=== PATIENT | male | born 1990 | race Hispanic/Latino ===

== ENCOUNTER 2022-03-28 11:17 | Emergency (ER) | payer SELFPAY ==
[~2022-03-28] VITALS: Ht 172.7 cm; Wt 67.1 kg
[2022-03-28 11:18] VITALS: BP 121/70
[2022-03-28] MEDS ORDERED: ANUS2.5C2 TOP (14:02)
[2022-03-28] MEDS ORDERED: LIDO5CRE6 TOP (14:02)
[2022-03-28] MEDS ORDERED: MIRA3350 PO (14:03)
== END 2022-03-28 14:17 | disposition home or self-care (01) ==
LOC: M ED 11:17
DX: K64.4 Residual hemorrhoidal skin tags (principal)

== ENCOUNTER 2022-04-30 05:57 | Emergency (ER) | payer SELFPAY ==
[~2022-04-30] VITALS: Ht 172.7 cm; Wt 65.9 kg
[~2022-04-30 05:57] MED LIST: ANUS2.5C2 TOP; LIDO5CRE6 TOP; MIRA3350 PO
[2022-04-30] MEDS ORDERED: KETOROLAC 60MG 2ML VIAL IM ONE (08:10)
[2022-04-30 08:58] LABS: RSV AMPLIFICATION NEGATIVE (NEGATIVE)
[2022-04-30] MEDS ORDERED: CYCL-707 PO (09:08)
[2022-04-30 09:15] VITALS: BP 123/70
== END 2022-04-30 09:20 | disposition home or self-care (01) ==
LOC: M ED 05:57
DX: M51.27 Other intervertebral disc displacement, lumbosacral region (principal)
CPT/HCPCS: 72131; 87631; 96372; 99283; J1885

== ENCOUNTER 2022-07-15 03:33 | Emergency (ER) | payer SELFPAY ==
[~2022-07-15] VITALS: Ht 172.7 cm; Wt 67.4 kg
[~2022-07-15 03:33] MED LIST changes: +CYCL-707 PO
[2022-07-15 03:34] VITALS: BP 133/73
== END 2022-07-15 04:57 | disposition left against medical advice (07) ==
LOC: M ED 03:33
DX: Z53.21 Procedure and treatment not carried out due to patient leaving prior to being seen by health care provider (principal)

== ENCOUNTER 2022-10-29 17:02 | Emergency (ER) | payer MEDICAID, OTHER, SELFPAY ==
[~2022-10-29] VITALS: Ht 170.2 cm; Wt 65.5 kg
[2022-10-29] MEDS ORDERED: MORPHINE 4 MG/ML 1ML VIAL IV PRN (17:10)
[2022-10-29] MEDS ORDERED: NS 1,000 ML IV ONE (17:10)
[2022-10-29] MEDS ORDERED: ONDANSETRON 4MG 2ML VIAL IV ONE (17:10)
[2022-10-29] MEDS ORDERED: ACET-910 PO (17:16)
[2022-10-29 17:32] LABS: BASO % 0.2 % (0.0-1.0); EOS % 0.1 % (0.0-3.0); HEMATOCRIT 41.4 % (42.0-52.0); HEMOGLOBIN 13.7 g/dl (13.5-17.5); LYMPH # 0.6 10^3/uL (1.5-5.0); LYMPH % 6.3 % (24.0-44.0); MEAN CORPUSCULAR HGB CONC 33.1 g/dl (32.0-36.5); MEAN CORPUSCULAR VOLUME 84.7 fl (80.0-96.0); MONO # 0.5 10^3/uL (0.0-0.8); MONO % 5.9 % (2.0-8.0); NEUTROPHILS # 7.6 10^3/uL (1.5-8.5); NEUTROPHILS % 86.7 % (36.0-66.0); PLATELET COUNT, AUTOMATED 158 10^3/uL (150-450); RED BLOOD COUNT 4.89 10^6/uL (4.30-6.10); WHITE BLOOD COUNT 8.8 10^3/uL (4.0-10.0)
[2022-10-29] MEDS ORDERED: ISOVUE-370 76% 100ML VIAL As Ordered ONE (17:38)
[2022-10-29 18:04] LABS: RSV AMPLIFICATION NEGATIVE (NEGATIVE)
[2022-10-29 18:26] LABS: ALBUMIN 3.7 G/DL (3.2-5.2); ALKALINE PHOSPHATASE 63 U/L (46-116); ALT/SGPT 22 U/L (7.0-40); AST/SGOT 23 U/L (<34); BILIRUBIN,DIRECT 0.2 MG/DL (<0.4); BILIRUBIN,TOTAL 0.6 MG/DL (0.3-1.2); BLOOD UREA NITROGEN 13 MG/DL (9-23); CALCIUM LEVEL 9.3 MG/DL (8.5-10.1); CARBON DIOXIDE LEVEL 25 MMOL/L (20-31); CHLORIDE LEVEL 104 MMOL/L (98-107); CREATININE FOR GFR 0.71 MG/DL (0.70-1.30); GLOMERULAR FILTRATION RATE > 60.0 (>60); GLUCOSE, FASTING 105 MG/DL (60-100); LIPASE 17 U/L (12-53); POTASSIUM SERUM 4.2 MMOL/L (3.5-5.1); SODIUM LEVEL 137 MMOL/L (136-145); TOTAL PROTEIN 8.8 G/DL (5.7-8.2)
[2022-10-29 19:00] VITALS: BP 139/70
[2022-10-29] MEDS ORDERED: ONDA4TAB6 PO (20:08)
== END 2022-10-29 20:22 | disposition home or self-care (01) ==
LOC: M ED 17:02 → EDBD 17:02 → M ED 20:22
DX: K52.9 Noninfective gastroenteritis and colitis, unspecified (principal); Z79.83 Long term (current) use of bisphosphonates; Z79.899 Other long term (current) drug therapy
CPT/HCPCS: 74177; 80047; 80048; 80076; 83690; 85025; 86850; 86900; 86901; 87631; 96374; 96375; 99284; J2270; J2405

== ENCOUNTER → 2022-11-01 | Outpatient (REF) | payer OTHER ==
[~2022-11-01] MED LIST changes: +ACET-910 PO; +ONDA4TAB6 PO
[2022-11-01 14:05] LABS: BASO % 0.6 % (0.0-1.0); EOS % 0.2 % (0.0-3.0); HEMATOCRIT 41.9 % (42.0-52.0); HEMOGLOBIN 13.6 g/dl (13.5-17.5); LYMPH # 1.3 10^3/uL (1.5-5.0); LYMPH % 25.8 % (24.0-44.0); MEAN CORPUSCULAR HEMOGLOBIN 27.8 pg (27.0-33.0); MEAN CORPUSCULAR HGB CONC 32.5 g/dl (32.0-36.5); MEAN CORPUSCULAR VOLUME 85.5 fl (80.0-96.0); MONO # 0.6 10^3/uL (0.0-0.8); MONO % 12.1 % (2.0-8.0); NEUTROPHILS % 60.5 % (36.0-66.0); PLATELET COUNT, AUTOMATED 162 10^3/uL (150-450)
[2022-11-01 14:39] LABS: HEMOGLOBIN A1c 5.2 % (4.0-6.0)
[2022-11-01 14:46] LABS: ALBUMIN 3.6 G/DL (3.2-5.2); ALKALINE PHOSPHATASE 57 U/L (46-116); ALT/SGPT 25 U/L (7.0-40); AST/SGOT 23 U/L (<34); BILIRUBIN,TOTAL 0.5 MG/DL (0.3-1.2); BLOOD UREA NITROGEN 10 MG/DL (9-23); CALCIUM LEVEL 9.7 MG/DL (8.5-10.1); CARBON DIOXIDE LEVEL 28 MMOL/L (20-31); CHLORIDE LEVEL 102 MMOL/L (98-107); CHOLESTEROL LEVEL 134 MG/DL (<200); CHOLESTEROL RISK RATIO 4.76 (<5); CREATININE FOR GFR 0.79 MG/DL (0.70-1.30); GLOMERULAR FILTRATION RATE > 60.0 (>60); GLUCOSE, FASTING 101 MG/DL (60-100); HDL CHOLESTEROL 28.1 MG/DL (>40); LDL CHOLESTEROL 84.9 MG/DL (<100); NON-HDL-C 106 MG/DL; POTASSIUM SERUM 4.1 MMOL/L (3.5-5.1); SODIUM LEVEL 136 MMOL/L (136-145); THYROID STIMULATING HORMONE 2.199 uIU/ML (0.55-4.78); TOTAL PROTEIN 8.6 G/DL (5.7-8.2); TRIGLYCERIDES LEVEL 105 MG/DL (<150)
== END ==
LOC: M LAB REF 12:52
PROVIDERS: ATTEND Nurse Practitioner Family
DX: K59.00 Constipation, unspecified (principal); E55.9 Vitamin D deficiency, unspecified; R53.83 Other fatigue; Z11.9 Encounter for screening for infectious and parasitic diseases, unspecified

== ENCOUNTER → 2022-11-08 | Outpatient (CLI) | payer OTHER ==
[2022-11-08 16:11] LABS: APPEARANCE, URINE CLEAR (CLEAR); BACTERIA, URINE AUTO NEGATIVE (NEGATIVE); BILIRUBIN, URINE AUTO NEGATIVE (NEGATIVE); BLOOD, URINE BLOOD NEGATIVE (NEGATIVE); COLOR, URINE YELLOW (YELLOW); GLUCOSE, URINE (UA) AUTO NEGATIVE (NEGATIVE); KETONE, URINE AUTO NEGATIVE (NEGATIVE); LEUKOCYTE ESTERASE, URINE AUTO NEGATIVE (NEGATIVE); MUCUS, URINE SMALL (NEGATIVE); NITRITE, URINE AUTO NEGATIVE (NEGATIVE); PROTEIN, URINE AUTO NEGATIVE (NEGATIVE); RBC, URINE AUTO 0 /HPF (0-3); SPECIFIC GRAVITY URINE AUTO 1.016 (1.002-1.035); SQUAMOUS EPITHELIAL CELL UR AU 0 /HPF (0-6); UROBILINOGEN, URINE AUTO 0.2 mg/dL (0.0-2.0); WBC, URINE AUTO 0 /HPF (0-3)
[2022-11-08 16:41] LABS: HEPATITIS B SURFACE ANTIBODY POSITIVE (POSITIVE)
[2022-11-08 16:53] LABS: HEPATITIS B SURFACE ANTIGEN NEGATIVE (NEGATIVE)
[2022-11-08 17:38] LABS: GC DNA AMPLIFICATION NEGATIVE (NEGATIVE)
[2022-11-08 20:25] LABS: GC DNA AMPLIFICATION NEGATIVE (NEGATIVE)
== END ==
LOC: M PLALAB 12:15
PROVIDERS: ATTEND Internal Medicine Infectious Disease
DX: B20 Human immunodeficiency virus [HIV] disease (principal)

== ENCOUNTER → 2022-11-28 | Outpatient (CLI) | payer OTHER ==
[2022-12-01 01:10] LABS: % CD8 Pos Lymph 77.6 % (12.0-35.5); %CD4 Pos Lymphs 8.2 % (30.8-58.5); ABS Lymphs 1.5 x10E3/uL (0.7-3.1); ABS Monocytes 0.5 x10E3/uL (0.1-0.9); Abs CD4 Helper 123 /uL (359-1519); Abs CD8 Suppres 1164 /uL (109-897); CD4/CD8 Ratio 0.11 (0.92-3.72); Eosinophils 1 % (Not Estab.); HCT 40.1 % (37.5-51.0); HGB 12.8 g/dL (13.0-17.7); HIV-1 RNA PCR QUANT 2 LC550285 150 copies/mL (.); HIV-1 RNA PCR QUANT 3 LC550285 2.176 (.); Immature Grans 0 % (Not Estab.); Lymphocytes 36 % (Not Estab.); MCH 27.4 pg (26.6-33.0); MCHC 31.9 g/dL (31.5-35.7); MCV 86 fL (79-97); Monocytes 13 % (Not Estab.); Neutrophils 49 % (Not Estab.); Platelets 157 x10E3/uL (150-450); RBC 4.67 x10E6/uL (4.14-5.80); RDW 13.3 % (11.6-15.4); WBC 4.1 x10E3/uL (3.4-10.8)
== END ==
LOC: M PLALAB 12:20
PROVIDERS: ATTEND Internal Medicine Infectious Disease
DX: B20 Human immunodeficiency virus [HIV] disease (principal)

== ENCOUNTER → 2022-11-29 | Outpatient (REF) | payer OTHER ==
[~2022-11-29] MED LIST changes: +BACTDSTA PO; +BIKT1TAB PO; +DOCU100C16 PO; +VITA200032 PO
== END ==
LOC: M SFHCDERM 14:30
PROVIDERS: ATTEND Nurse Practitioner Family
DX: D48.9 Neoplasm of uncertain behavior, unspecified (principal)

== ENCOUNTER 2022-12-15 09:52 | Day surgery (SDC) | payer OTHER ==
[~2022-12-15] VITALS: Ht 172.7 cm; Wt 63.9 kg
[~2022-12-15 09:52] MED LIST changes: +BACTDSTA; +LIDOCAINE 2% 100MG/5ML SDV (FOR ANES.) As Ordered ONE; +NS 1,000 ML IV ONE; +propofoL 200 MG/20 ML VIAL As Ordered ONE
[2022-12-15] MEDS ORDERED: propofoL 200 MG/20 ML VIAL As Ordered ONE (13:24)
[2022-12-15 15:15] VITALS: BP 123/67
== END 2022-12-15 15:15 | disposition home or self-care (01) ==
LOC: M OPP 09:52
PROVIDERS: ATTEND Internal Medicine Gastroenterology
DX: D49.0 Neoplasm of unspecified behavior of digestive system (principal); K92.1 Melena; Z53.8 Procedure and treatment not carried out for other reasons; B20 Human immunodeficiency virus [HIV] disease; K75.9 Inflammatory liver disease, unspecified; F41.9 Anxiety disorder, unspecified; Z79.899 Other long term (current) drug therapy

== ENCOUNTER → 2022-12-19 | Outpatient (REF) | payer OTHER ==
[~2022-12-19] MED LIST changes: -LIDOCAINE 2% 100MG/5ML SDV (FOR ANES.) As Ordered ONE; -NS 1,000 ML IV ONE; -propofoL 200 MG/20 ML VIAL As Ordered ONE
== END ==
LOC: M SFHCDERM 17:48
PROVIDERS: ATTEND Nurse Practitioner Family
DX: D48.5 Neoplasm of uncertain behavior of skin (principal)

== ENCOUNTER → 2023-01-16 | Outpatient (CLI) | payer OTHER ==
[~2023-01-16] MED LIST changes: +ISOVUE-370 76% 100ML VIAL As Ordered ONE
== END ==
LOC: M RAD 13:40
PROVIDERS: ATTEND Specialist
DX: C46.9 Kaposi's sarcoma, unspecified (principal); R92.2 Inconclusive mammogram
CPT/HCPCS: 70491; 71260; Q9967

== ENCOUNTER → 2023-03-09 | Outpatient (CLI) | payer OTHER ==
[~2023-03-09] MED LIST changes: -ISOVUE-370 76% 100ML VIAL As Ordered ONE
[2023-03-09 15:36] LABS: ALBUMIN 3.8 G/DL (3.2-5.2); ALKALINE PHOSPHATASE 66 U/L (46-116); ALT/SGPT 19 U/L (7.0-40); AST/SGOT < 8 U/L (<34); BILIRUBIN,TOTAL 0.5 MG/DL (0.3-1.2); BLOOD UREA NITROGEN 12 MG/DL (9-23); CALCIUM LEVEL 8.8 MG/DL (8.5-10.1); CARBON DIOXIDE LEVEL 28 MMOL/L (20-31); CHLORIDE LEVEL 104 MMOL/L (98-107); CREATININE FOR GFR 1.05 MG/DL (0.70-1.30); GLOMERULAR FILTRATION RATE > 60.0 (>60); GLUCOSE, FASTING 98 MG/DL (60-100); POTASSIUM SERUM 4.7 MMOL/L (3.5-5.1); SODIUM LEVEL 137 MMOL/L (136-145); TOTAL PROTEIN 7.7 G/DL (5.7-8.2)
[2023-03-11 04:09] LABS: % CD8 Pos Lymph 61.8 % (12.0-35.5); %CD4 Pos Lymphs 13.8 % (30.8-58.5); ABS Monocytes 0.6 x10E3/uL (0.1-0.9); ABS Neutophils 1.8 x10E3/uL (1.4-7.0); Abs CD4 Helper 138 /uL (359-1519); Abs CD8 Suppres 618 /uL (109-897); CD4/CD8 Ratio 0.22 (0.92-3.72); Eosinophils 1 % (Not Estab.); HCT 41.6 % (37.5-51.0); HGB 13.9 g/dL (13.0-17.7); HIV-1 RNA PCR QUANT 2 LC550285 30 copies/mL (.); HIV-1 RNA PCR QUANT 3 LC550285 1.477 (.); Immature Grans 0 % (Not Estab.); Lymphocytes 29 % (Not Estab.); MCH 28.8 pg (26.6-33.0); MCHC 33.4 g/dL (31.5-35.7); MCV 86 fL (79-97); Monocytes 17 % (Not Estab.); Neutrophils 52 % (Not Estab.); Platelets 195 x10E3/uL (150-450); RBC 4.82 x10E6/uL (4.14-5.80); RDW 13.4 % (11.6-15.4); WBC 3.5 x10E3/uL (3.4-10.8)
== END ==
LOC: M PLALAB 09:44
PROVIDERS: ATTEND Internal Medicine Infectious Disease
DX: B20 Human immunodeficiency virus [HIV] disease (principal)

== ENCOUNTER → 2023-03-21 | Outpatient (CLI) | payer OTHER ==
[~2023-03-21] MED LIST changes: -BACTDSTA
== END ==
LOC: M LAB 07:31
PROVIDERS: ATTEND Internal Medicine Gastroenterology
DX: K62.5 Hemorrhage of anus and rectum (principal)

== ENCOUNTER 2023-03-24 09:39 | Day surgery (SDC) | payer OTHER ==
[~2023-03-24] VITALS: Ht 172.7 cm; Wt 64.2 kg
[~2023-03-24 09:39] MED LIST changes: +NS 1,000 ML IV ONE
[2023-03-24] MEDS ORDERED: propofoL 200 MG/20 ML VIAL As Ordered ONE ×2 (11:01→12:10)
[2023-03-24 11:27] VITALS: TEMP 97.4
[2023-03-24 12:12] VITALS: BP 113/66; O2SAT 98
== END 2023-03-24 12:18 | disposition home or self-care (01) ==
LOC: M OPP 09:39
PROVIDERS: ATTEND Internal Medicine Gastroenterology
DX: K62.89 Other specified diseases of anus and rectum (principal); K52.9 Noninfective gastroenteritis and colitis, unspecified; K62.5 Hemorrhage of anus and rectum; Z79.899 Other long term (current) drug therapy

== ENCOUNTER → 2023-04-03 | Outpatient (CLI) | payer OTHER ==
[~2023-04-03] VITALS: Ht 172.7 cm; Wt 63.6 kg
[~2023-04-03] MED LIST changes: +LIDOCAINE W/EPINEPHRINE 1% 20ML VIAL As Ordered ONE; +MIDAZOLAM INJ 2MG/2ML VIAL As Ordered ONE; -NS 1,000 ML IV ONE; +NS 1,000 ML IV SCH; +ceFAZolin SOD 2 GM in IV 1 EA IV ONE; +fentaNYL 100 MCG/2 ML INJECTION As Ordered ONE
[2023-04-03 13:45] VITALS: TEMP 98.3
[2023-04-03 17:30] VITALS: BP 132/73; O2SAT 95
== END ==
LOC: M IRPRO 13:27
PROVIDERS: ATTEND Internal Medicine Hematology & Oncology
DX: D46.0 Refractory anemia without ring sideroblasts, so stated (principal)
CPT/HCPCS: 36561; 99152; 99153; J0690; J2250; J3010

== ENCOUNTER 2023-04-09 05:02 | Emergency (ER) | payer OTHER ==
[~2023-04-09] VITALS: Ht 160 cm; Wt 63.0 kg
[~2023-04-09 05:02] MED LIST changes: -LIDOCAINE W/EPINEPHRINE 1% 20ML VIAL As Ordered ONE; -MIDAZOLAM INJ 2MG/2ML VIAL As Ordered ONE; -NS 1,000 ML IV SCH; -ceFAZolin SOD 2 GM in IV 1 EA IV ONE; -fentaNYL 100 MCG/2 ML INJECTION As Ordered ONE
[2023-04-09 05:44] LABS: BASO % 0.4 % (0.0-1.0); EOS # 0.1 10^3/uL (0.0-0.5); EOS % 0.7 % (0.0-3.0); HEMATOCRIT 40.1 % (42.0-52.0); HEMOGLOBIN 13.3 g/dl (13.5-17.5); LYMPH % 13.9 % (24.0-44.0); MEAN CORPUSCULAR HEMOGLOBIN 28.1 pg (27.0-33.0); MEAN CORPUSCULAR HGB CONC 33.2 g/dl (32.0-36.5); MEAN CORPUSCULAR VOLUME 84.8 fl (80.0-96.0); MONO # 0.9 10^3/uL (0.0-0.8); MONO % 11.5 % (2.0-8.0); NEUTROPHILS # 5.4 10^3/uL (1.5-8.5); NEUTROPHILS % 73.1 % (36.0-66.0); PLATELET COUNT, AUTOMATED 176 10^3/uL (150-450); RED BLOOD COUNT 4.73 10^6/uL (4.30-6.10); WHITE BLOOD COUNT 7.4 10^3/uL (4.0-10.0)
[2023-04-09 06:14] LABS: LIPASE 20 U/L (12-53)
[2023-04-09 06:16] LABS: ALBUMIN 3.8 G/DL (3.2-5.2); ALKALINE PHOSPHATASE 64 U/L (46-116); ALT/SGPT 18 U/L (7.0-40); AST/SGOT 13 U/L (<34); BILIRUBIN,DIRECT 0.1 MG/DL (<0.4); BILIRUBIN,TOTAL 0.4 MG/DL (0.3-1.2); BLOOD UREA NITROGEN 14 MG/DL (9-23); CALCIUM LEVEL 9.1 MG/DL (8.5-10.1); CARBON DIOXIDE LEVEL 27 MMOL/L (20-31); CHLORIDE LEVEL 103 MMOL/L (98-107); CREATININE FOR GFR 0.95 MG/DL (0.70-1.30); GLOMERULAR FILTRATION RATE > 60.0 (>60); GLUCOSE, FASTING 104 MG/DL (60-100); POTASSIUM SERUM 3.9 MMOL/L (3.5-5.1); SODIUM LEVEL 138 MMOL/L (136-145)
[2023-04-09] MEDS ORDERED: ONDANSETRON 4MG 2ML VIAL IV ONE (07:50)
[2023-04-09] MEDS ORDERED: KETOROLAC 30 MG/ML 1ML VIAL IV ONE (07:50)
[2023-04-09] MEDS ORDERED: NS 1,000 ML IV ONE (07:50)
[2023-04-09] MEDS ORDERED: ISOVUE-370 76% 100ML VIAL As Ordered ONE (07:59)
[2023-04-09] MEDS ORDERED: ONDA4TAB6 PO (09:59)
[2023-04-09 10:06] VITALS: BP 112/72; TEMP 98; O2SAT 98
== END 2023-04-09 10:24 | disposition home or self-care (01) ==
LOC: M ED 05:02
DX: B20 Human immunodeficiency virus [HIV] disease (principal); C46.4 Kaposi's sarcoma of gastrointestinal sites; R11.2 Nausea with vomiting, unspecified; R19.7 Diarrhea, unspecified; Z79.899 Other long term (current) drug therapy
CPT/HCPCS: 36415; 71045; 74177; 80048; 80076; 83605; 83690; 85025; 87040; 93041; 94760; 96374; 96375; 99284; J1885; J2405; Q9967

== ENCOUNTER → 2023-04-11 | Outpatient (CLI) | payer OTHER | LOC: M CARPUL 11:28 | PROVIDERS: ATTEND Internal Medicine Hematology & Oncology | DX: C46.9 Kaposi's sarcoma, unspecified (principal) ==

== ENCOUNTER → 2023-05-16 | Outpatient (REF) | payer OTHER ==
[2023-05-18 05:07] LABS: % CD8 Pos Lymph 61.5 % (12.0-35.5); %CD4 Pos Lymphs 16.2 % (30.8-58.5); ABS Basophils 0.1 x10E3/uL (0.0-0.2); ABS Eosinophils 0.1 x10E3/uL (0.0-0.4); ABS Lymphs 1.2 x10E3/uL (0.7-3.1); ABS Monocytes 0.7 x10E3/uL (0.1-0.9); ABS Neutophils 1.6 x10E3/uL (1.4-7.0); Abs CD4 Helper 194 /uL (359-1519); Abs CD8 Suppres 738 /uL (109-897); CD4/CD8 Ratio 0.26 (0.92-3.72); Eosinophils 3 % (Not Estab.); HCT 39.8 % (37.5-51.0); HGB 13.9 g/dL (13.0-17.7); HIV-1 RNA PCR QUANT 2 LC550285 1130 copies/mL (.); HIV-1 RNA PCR QUANT 3 LC550285 3.053 (.); Immature Grans 0 % (Not Estab.); Lymphocytes 33 % (Not Estab.); MCH 29.6 pg (26.6-33.0); MCHC 34.9 g/dL (31.5-35.7); MCV 85 fL (79-97); Monocytes 18 % (Not Estab.); Neutrophils 44 % (Not Estab.); Platelets 207 x10E3/uL (150-450); RBC 4.69 x10E6/uL (4.14-5.80); RDW 14.4 % (11.6-15.4); WBC 3.7 x10E3/uL (3.4-10.8)
== END ==
LOC: M LAB REF 13:12
PROVIDERS: ATTEND Internal Medicine Infectious Disease
DX: B20 Human immunodeficiency virus [HIV] disease (principal)

== ENCOUNTER → 2023-06-06 | Outpatient (REF) | payer OTHER | LOC: M LAB REF 11:04 | PROVIDERS: ATTEND Internal Medicine Infectious Disease | DX: B20 Human immunodeficiency virus [HIV] disease (principal) ==

== ENCOUNTER 2023-10-10 07:55 | Day surgery (SDC) | payer OTHER ==
[~2023-10-10] VITALS: Ht 172.7 cm; Wt 71.6 kg
[~2023-10-10 07:55] MED LIST changes: +LIDO30CR18 TOP
[2023-10-10] MEDS: NS 1,000 ML IV ONE (08:22)
[2023-10-10] MEDS ORDERED: propofoL 200 MG/20 ML VIAL As Ordered ONE (09:29)
[2023-10-10] MEDS ORDERED: LIDOCAINE 2% 100MG/5ML SDV (FOR ANES.) As Ordered ONE (09:29)
[2023-10-10 10:06] VITALS: TEMP 97.8
[2023-10-10 10:52] VITALS: BP 110/70; O2SAT 98
== END 2023-10-10 10:54 | disposition home or self-care (01) ==
LOC: M OPP 07:55
PROVIDERS: ATTEND Internal Medicine Gastroenterology
DX: K63.89 Other specified diseases of intestine (principal); K52.89 Other specified noninfective gastroenteritis and colitis; K64.4 Residual hemorrhoidal skin tags; K64.8 Other hemorrhoids; K92.2 Gastrointestinal hemorrhage, unspecified; B20 Human immunodeficiency virus [HIV] disease; Z79.2 Long term (current) use of antibiotics; Z79.83 Long term (current) use of bisphosphonates; Z79.899 Other long term (current) drug therapy

== ENCOUNTER → 2023-10-31 | Outpatient (CLI) | payer OTHER ==
[2023-10-31 10:45] LABS: ALBUMIN 3.8 G/DL (3.2-5.2); ALKALINE PHOSPHATASE 61 U/L (46-116); ALT/SGPT 19 U/L (7.0-40); AST/SGOT 14 U/L (<34); BILIRUBIN,TOTAL 0.5 MG/DL (0.3-1.2); BLOOD UREA NITROGEN 14 MG/DL (9-23); CALCIUM LEVEL 9.2 MG/DL (8.5-10.1); CARBON DIOXIDE LEVEL 28 MMOL/L (20-31); CHLORIDE LEVEL 108 MMOL/L (98-107); CREATININE FOR GFR 1.11 MG/DL (0.70-1.30); GLOMERULAR FILTRATION RATE > 60.0 (>60); GLUCOSE, FASTING 100 MG/DL (60-100); SODIUM LEVEL 139 MMOL/L (136-145); TOTAL PROTEIN 7.4 G/DL (5.7-8.2)
== END ==
LOC: M PLALAB 08:32
PROVIDERS: ATTEND Internal Medicine Infectious Disease
DX: B20 Human immunodeficiency virus [HIV] disease (principal); A53.0 Latent syphilis, unspecified as early or late

== ENCOUNTER → 2023-11-15 | Outpatient (CLI) | payer OTHER ==
[~2023-11-15] MED LIST changes: +GASTROGRAFIN SOLUTION 30ML As Ordered ONE; +ISOVUE-370 76% 100ML VIAL As Ordered ONE
== END ==
LOC: M RAD 10:47
PROVIDERS: ATTEND Specialist
DX: C46.4 Kaposi's sarcoma of gastrointestinal sites (principal); N20.0 Calculus of kidney; K76.0 Fatty (change of) liver, not elsewhere classified; R93.3 Abnormal findings on diagnostic imaging of other parts of digestive tract
CPT/HCPCS: 71260; 74177; Q9963; Q9967

== ENCOUNTER → 2023-12-28 | Outpatient (CLI) | payer OTHER ==
[~2023-12-28] MED LIST changes: -GASTROGRAFIN SOLUTION 30ML As Ordered ONE; -ISOVUE-370 76% 100ML VIAL As Ordered ONE
== END ==
LOC: M CARPUL 10:23
PROVIDERS: ATTEND Internal Medicine Hematology & Oncology
DX: C46.9 Kaposi's sarcoma, unspecified (principal)

== ENCOUNTER 2024-01-02 21:54 | Emergency (ER) | payer OTHER ==
[2024-01-02 22:59] LABS: BASO # 0.1 10^3/uL (0.0-0.2); BASO % 0.6 % (0.0-1.0); EOS % 0.5 % (0.0-3.0); HEMATOCRIT 39.5 % (42.0-52.0); LYMPH # 1.1 10^3/uL (1.5-5.0); MEAN CORPUSCULAR HEMOGLOBIN 30.6 pg (27.0-33.0); MEAN CORPUSCULAR HGB CONC 35.4 g/dl (32.0-36.5); MEAN CORPUSCULAR VOLUME 86.4 fl (80.0-96.0); MONO # 0.9 10^3/uL (0.0-0.8); MONO % 10.9 % (2.0-8.0); NEUTROPHILS # 6.2 10^3/uL (1.5-8.5); NEUTROPHILS % 74.6 % (36.0-66.0); PLATELET COUNT, AUTOMATED 227 10^3/uL (150-450); RED BLOOD COUNT 4.57 10^6/uL (4.30-6.10); WHITE BLOOD COUNT 8.3 10^3/uL (4.0-10.0)
[2024-01-03 00:19] LABS: ALBUMIN 3.6 G/DL (3.2-5.2); ALKALINE PHOSPHATASE 60 U/L (46-116); ALT/SGPT 26 U/L (7.0-40); AST/SGOT 19 U/L (<34); BILIRUBIN,DIRECT 0.1 MG/DL (<0.4); BILIRUBIN,TOTAL 0.5 MG/DL (0.3-1.2); BLOOD UREA NITROGEN 11 MG/DL (9-23); CALCIUM LEVEL 9.1 MG/DL (8.5-10.1); CARBON DIOXIDE LEVEL 27 MMOL/L (20-31); CHLORIDE LEVEL 106 MMOL/L (98-107); CREATININE FOR GFR 0.88 MG/DL (0.70-1.30); GLOMERULAR FILTRATION RATE > 60.0 (>60); GLUCOSE, FASTING 108 MG/DL (60-100); LIPASE 25 U/L (12-53); POTASSIUM SERUM 3.6 MMOL/L (3.5-5.1); SODIUM LEVEL 141 MMOL/L (136-145); TOTAL PROTEIN 7.6 G/DL (5.7-8.2)
[2024-01-03] MEDS: ONDANSETRON 4MG 2ML VIAL IV ONE (00:34)
[2024-01-03] MEDS: KETOROLAC 30 MG/ML 1ML VIAL IV ONE (00:34)
[2024-01-03] MEDS ORDERED: ISOVUE-370 76% 100ML VIAL As Ordered ONE (00:34)
[2024-01-03] MEDS: MAGNESIUM CITRATE 300ML BTL PO ONE (03:00)
[2024-01-03 03:15] VITALS: BP 117/73; TEMP 97.8; O2SAT 98
== END 2024-01-03 03:33 | disposition home or self-care (01) ==
LOC: M ED 21:54
DX: K59.00 Constipation, unspecified (principal); B20 Human immunodeficiency virus [HIV] disease; B15.9 Hepatitis A without hepatic coma; C46.9 Kaposi's sarcoma, unspecified; Z79.899 Other long term (current) drug therapy
CPT/HCPCS: 74177; 80048; 80076; 83690; 85025; 96374; 96375; 99284; J1885; J2405; Q9967

== ENCOUNTER 2024-01-04 21:07 | Emergency (ER) | payer OTHER ==
[~2024-01-04] VITALS: Ht 172.7 cm; Wt 75.0 kg
[2024-01-04] MEDS: DICYCLOMINE INJ 20MG/2ML IM ONE (22:17)
[2024-01-04 22:43] LABS: BASO # 0.1 10^3/uL (0.0-0.2); BASO % 0.9 % (0.0-1.0); EOS % 0.5 % (0.0-3.0); HEMATOCRIT 43.9 % (42.0-52.0); HEMOGLOBIN 15.6 g/dl (13.5-17.5); LYMPH # 1.7 10^3/uL (1.5-5.0); LYMPH % 30.3 % (24.0-44.0); MEAN CORPUSCULAR HGB CONC 35.5 g/dl (32.0-36.5); MEAN CORPUSCULAR VOLUME 87.1 fl (80.0-96.0); MONO # 0.9 10^3/uL (0.0-0.8); MONO % 15.4 % (2.0-8.0); NEUTROPHILS % 52.5 % (36.0-66.0); PLATELET COUNT, AUTOMATED 302 10^3/uL (150-450); RED BLOOD COUNT 5.04 10^6/uL (4.30-6.10); WHITE BLOOD COUNT 5.6 10^3/uL (4.0-10.0)
[2024-01-04] MEDS: KETOROLAC 30 MG/ML 1ML VIAL IV ONE (23:04)
[2024-01-04 23:26] LABS: ALBUMIN 4.2 G/DL (3.2-5.2); ALKALINE PHOSPHATASE 71 U/L (46-116); ALT/SGPT 30 U/L (7.0-40); AST/SGOT 21 U/L (<34); BILIRUBIN,DIRECT 0.2 MG/DL (<0.4); BILIRUBIN,TOTAL 0.7 MG/DL (0.3-1.2); BLOOD UREA NITROGEN 15 MG/DL (9-23); CALCIUM LEVEL 10.1 MG/DL (8.5-10.1); CARBON DIOXIDE LEVEL 28 MMOL/L (20-31); CHLORIDE LEVEL 102 MMOL/L (98-107); CREATININE FOR GFR 0.98 MG/DL (0.70-1.30); GLOMERULAR FILTRATION RATE > 60.0 (>60); GLUCOSE, FASTING 109 MG/DL (60-100); POTASSIUM SERUM 3.4 MMOL/L (3.5-5.1); SODIUM LEVEL 140 MMOL/L (136-145); TOTAL PROTEIN 8.5 G/DL (5.7-8.2)
[2024-01-04] MEDS: FLEET OIL RETENTION ENEMA PR STA (23:42)
[2024-01-04] MEDS: NS 1,000 ML IV ONE (23:50)
[2024-01-05] MEDS: LACTULOSE 20GM/30ML SYRUP UDC PO ONE (00:03)
[2024-01-05] MEDS ORDERED: COLA100C5 PO (01:31)
[2024-01-05] MEDS ORDERED: FLEETOIL PR (01:31)
[2024-01-05 01:52] VITALS: BP 135/87; TEMP 98.1; O2SAT 97
== END 2024-01-05 01:54 | disposition home or self-care (01) ==
LOC: M ED 21:07 → EDBD 21:07 → M ED 01-05 01:54
DX: K59.00 Constipation, unspecified (principal); B20 Human immunodeficiency virus [HIV] disease; Z86.19 Personal history of other infectious and parasitic diseases; Z79.899 Other long term (current) drug therapy
CPT/HCPCS: 74018; 80048; 80076; 83605; 85025; 96361; 96372; 96374; 99284; J0500; J1885